=== PATIENT | female | born 1985 | race Caucasian/White ===

== ENCOUNTER 2017-07-02 08:58 | Emergency (ER) | payer BC ==
[~2017-07-02] VITALS: Ht 149.9 cm; Wt 72.6 kg
[~2017-07-02 08:58] MED LIST: ABILIFY10 MG; ABILIFY10 MG PO; ACETAMINOPHEN-1 EAC1 PO; ALBUTEROL INH; ALBUTEROL INHAL17 GM IH; ALPRAZOLAM; ALPRAZOLAM 0.50.5 M1 PO; AMBIEN 10 MG TA10 MG; AMBIEN 10 MG TA10 MG PO; AMITRIPTYLINE H25 M2 PO; AMOXICILLIN875 MG PO; ANAPROX DS550 MG PO; AUGMENTIN 875875 MG PO; AURALGAN EAR DR14 ML OT; BACTRIM DS TAB1 EACH PO; BENTYL 20 MG TA20 M1 PO; BENTYL10 MG PO; CARAFATE 1 GM TA1 G1 PO; CLONAZEPAM; DESYREL150 MG PO; FLEXERIL PO; FLONASE 0.05%50 MCG NASAL; FLONASE16 GM NS; GEODON20 MG PO; HYDROCODONE-AP1 EAC6 PO; IBUPROFEN 800800 M1 PO; IMITREX 25 MG T25 M1 PO; KEFLEX500 MG PO; LEXAPRO20 MG; LEXAPRO20 MG PO; MEDROLDOSEPACK PO; MOBIC7.5 M1 PO; NAPROSYN500 MG PO; NOHOMEMEDICATIONS; NORCO 5-325 TA1 EAC1 PO; NORCO 5-325 TA1 EACH PO; NORFLEX100 MG PO; ONDANSETRON HCL4 M2 PO; PENICILLIN V P500 MG PO; PENICILLIN VK250 MG PO; PERCOCET 5-3251 EACH PO; PERCOCET PO; PHENERGAN 25 MG25 M1 PO; PREDNISONE 20 M20 M1 PO; PROAIR HFA8.5 GM; PROAIR HFA8.5 GM IH; PROAIR HFA8.5 GM INH; PROMETHAZINE D480 ML PO; PROMETHAZINE-D120 ML PO; ROBAXIN 750 MG750 M1 PO; ROBAXIN500 MG PO; SINGULAIR 10 MG10 M1 PO; SPIRIVA INH; TEGRETOL; TESSALON PERLE100 MG PO; TOBRAMYCIN SULFA5 M1 OP; TOBREX5 ML OTIC; TOPAMAX25 M1 PO; TRAMADOL 50 MG50 MG PO; TRAZODONE HCL50 MG; ULTRAM 50MG TAB50 MG PO; VENTOLIN HFA 1818 GM INH; VENTOLIN17 GM INH; VISTARIL 25 MG25 M1 PO; WELLBUTRIN 75 M75 M1; XANAX XR1 MG; ZANAFLEX4 MG PO; ZOFRAN ODT4 MG PO; ZPAK PO
[2017-07-02] MEDS ORDERED: LIORESAL 10 MG10 MG PO (09:15)
[2017-07-02] MEDS ORDERED: NORCO 5-325 TA1 EACH PO (10:28)
[2017-07-02 10:43] VITALS: BP 119/75
== END 2017-07-02 10:44 | disposition home or self-care (01) ==
LOC: M.ERS 08:58
DX: S80.02XA Contusion of left knee, initial encounter (principal); M19.90 Unspecified osteoarthritis, unspecified site; J45.909 Unspecified asthma, uncomplicated; Z90.89 Acquired absence of other organs; Z98.890 Other specified postprocedural states; Z90.49 Acquired absence of other specified parts of digestive tract; Z91.5 Personal history of self-harm; Z88.8 Allergy status to other drugs, medicaments and biological substances; Z88.6 Allergy status to analgesic agent; Z87.891 Personal history of nicotine dependence; W18.49XA Other slipping, tripping and stumbling without falling, initial encounter; Y93.89 Activity, other specified; Y92.89 Other specified places as the place of occurrence of the external cause; Y99.8 Other external cause status

== ENCOUNTER 2018-02-26 13:00 | Emergency (ER) | payer BC ==
[~2018-02-26] VITALS: Ht 144.8 cm; Wt 77.1 kg
[~2018-02-26 13:00] MED LIST changes: +LIORESAL 10 MG10 MG PO
[2018-02-26] MEDS ORDERED: XANAX 0.5 MG0.5 M1 PO (13:17)
[2018-02-26] MEDS ORDERED: TOPAMAX100 MG PO (13:17)
[2018-02-26 14:02] LABS: URINE BILIRUBIN NEGATIVE (Negative); URINE BLOOD NEGATIVE (Negative); URINE CLARITY CLEAR; URINE COLOR YELLOW; URINE GLUCOSE-RANDOM NEGATIVE (Negative); URINE KETONES 1+ (Negative); URINE LEUKOCYTES-REFLEX NEGATIVE (Negative); URINE NITRITE-REFLEX NEGATIVE (Negative); URINE PROTEIN NEGATIVE (Negative); URINE SPECIFIC GRAVITY 1.015 (1.005-1.030); URINE UROBILINOGEN 0.2 E.U./dl (0.2-1.0)
[2018-02-26 14:12] LABS: INFLUENZA A ANTIGEN None Detected (None Detect); INFLUENZA B ANTIGEN None Detected (None Detect)
[2018-02-26 14:21] LABS: ABSOLUTE BASOPHILS 0.1 thou/uL (0.0-0.2); ABSOLUTE EOSINOPHILS 0.3 thou/uL (0.0-0.7); ABSOLUTE MONOCYTES 0.5 thou/uL (0.0-1.2); BASOPHILS 1.2 %; EOSINOPHILS 3.9 %; HEMATOCRIT 42.6 % (37.0-47.0); HEMOGLOBIN 14.5 gm/dL (12.0-15.0); LYMPHOCYTES 25.8 %; MCHC 33.9 g/dL (28.0-37.0); MCV 85.5 fL (80.0-100.0); MONOCYTES 5.9 %; MPV 7.6 fl. (7.2-11.1); NUCLEATED RBCS 0 /100WBC; PLATELET COUNT* 250 thou/uL (150-400); POLYS 63.2 %; RBC 4.98 mil/uL (4.20-5.00); RDW-CV 12.8 % (10.5-14.5); WBC 7.9 thou/uL (4.0-11.0)
[2018-02-26 14:29] LABS: CALCIUM 8.9 mg/dL (8.5-10.1); CREATININE 0.7 mg/dL (0.6-1.3); POTASSIUM 3.9 mmol/L (3.5-5.1)
[2018-02-26 14:34] LABS: ALBUMIN 3.6 g/dL (3.4-5.0); TOTAL BILIRUBIN 0.4 mg/dL (<0.1-1.0); TOTAL PROTEIN 6.5 g/dL (6.4-8.2)
[2018-02-26] MEDS ORDERED: PHENERGAN 25 MG25 M1 PO (14:53)
[2018-02-26 15:05] VITALS: BP 107/56
== END 2018-02-26 15:06 | disposition home or self-care (01) ==
LOC: M.ERS 13:00
PROVIDERS: Nurse Practitioner Family
DX: K52.9 Noninfective gastroenteritis and colitis, unspecified (principal); E86.0 Dehydration; M19.90 Unspecified osteoarthritis, unspecified site; J44.9 Chronic obstructive pulmonary disease, unspecified; Z98.890 Other specified postprocedural states; Z90.49 Acquired absence of other specified parts of digestive tract; Z85.41 Personal history of malignant neoplasm of cervix uteri; Z88.8 Allergy status to other drugs, medicaments and biological substances; Z87.891 Personal history of nicotine dependence